=== PATIENT | male | born 1955 | race Caucasian/White ===

== ENCOUNTER 2019-11-02 22:31 | Emergency (ER) | payer MEDICARE ==
[~2019-11-02] VITALS: Ht 177.8 cm; Wt 75.0 kg
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
--- NOTE | 2019-11-02 22:52 | NUR ---
PT DENIES SI/HI AT THIS TIME.
[2019-11-02 23:24] LABS: BASOPHILS # (AUTO) 0.03 x10^3/uL (0-0.1); BASOPHILS % (AUTO) 1 % (0-1); EOSINOPHILS # (AUTO) 0.01 x10^3/uL (0-0.4); EOSINOPHILS % (AUTO) 0 % (1-7); LYMPHOCYTES % (AUTO) 23 % (22-44); MD NO; MEAN CORPUSCULAR HEMOGLOBIN 29.1 pg (27.5-34.5); MEAN CORPUSCULAR HGB CONC 32.2 g/dL (33.2-36.2); MEAN CORPUSCULAR VOLUME 90.3 fL (81-97); MEAN PLATELET VOLUME 7.8 fL (7.4-10.4); MONOCYTES % (AUTO) 9 % (2-9); NEUTROPHILS # (AUTO) 3.83 x10^3/uL (1.8-6.8); NEUTROPHILS % (AUTO) 68 % (42-75); PLATELET COUNT 268 x10^3/uL (130-400); RED BLOOD COUNT 4.16 x10^6/uL (4.38-5.82); RED CELL DISTRIBUTION WIDTH 14.4 % (9.4-14.8)
[2019-11-02 23:34] LABS: ALANINE AMINOTRANSFERASE 51 U/L (12-78); ALBUMIN 3.4 g/dL (3.4-5.0); ANION GAP 8 mmol/L (5-15); CALCIUM 8.6 mg/dL (8.5-10.1); CHLORIDE 113 mmol/L (98-107); CREATININE 0.84 mg/dL (0.7-1.3)
--- NOTE | 2019-11-02 23:42 | NUR ---
Alexys fernández in [facility] - 11/02/19 at 2343 by FRANCES Information faxed to [facility], [facility], [facility], [facility], [facility].
[2019-11-02 23:44] LABS: ALKALINE PHOSPHATASE 61 U/L (45-117); BILIRUBIN,TOTAL 0.3 mg/dL (0.2-1.0); TOTAL PROTEIN 6.8 g/dL (6.4-8.2)
--- NOTE | 2019-11-02 23:46 | NUR ---
PT EDUCATED ON THE NEED FOR A URINE SAMPLE. PT ADAMANT THAT HE CANNOT PEE AT THIS TIME. PT ENCOURAGED TO JUST TRY. PT CONTINUALLY REFUSING, STATING "I TOLD YOU I CAN'T PEE!". PT THEN THREW THE URINAL ACROSS THE ROOM. WILL CONTINUE TO REMIND PT TO OBTAIN A URINE SAMPLE
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
--- NOTE | 2019-11-03 00:36 | NUR ---
PT HAS BEEN REMINDED 2 MORE TIMES FOR THE NEED FOR A URINE SAMPLE. PT STILL ADAMANTLY REFUSING AND YELLING AT THIS RN ANY TIME HE IS ASKED. PT OFFERED WATER AND REFUSES, STATING "YOU AIN'T GETTING SHIT FROM ME. I DON'T NEED TO BE HERE. I NEED A DENTIST, NOT YOU FUCKING PEOPLE". DR. LORENZ AWARE AND STATES THE UA IS NOT NECESSARY AT THIS TIME.
--- NOTE | 2019-11-03 02:11 | NUR ---
PT SLEEPING. RESPIRATIONS EVEN AND UNLABORED. SITTER OUTSIDE DOOR MONITORING PT. ROOM REMAINS SECURE.
--- NOTE | 2019-11-03 03:24 | NUR ---
PT CONTINUES TO SLEEP. NO DISTRESS NOTED. ROOM REMAINS SECURE. SITTER OUTSIDE DOOR MONITORING PT. WILL CONTINUE TO MONITOR.
--- NOTE | 2019-11-03 05:43 | NUR ---
PT MOVED TO ROOM 2. REPORT TO BARTOLOME WRIGHT. BELONGINGS MOVED IN LOCKER.
--- NOTE | 2019-11-03 05:51 | NUR ---
PT RESTING IN BED, PT ROOM IS SI SECURE WITH SITTER AT PT DOOR. RN WILL CONTINUE TO MONITOR PT. PT DENIED ANY WANTS OR NEEDS AT THIS TIME. PT MEDICATED PER EMAR.
[2019-11-03 06:33] LABS: AMPHETAMINE SCREEN, URINE Positive (Negative); BARBITURATE SCREEN, URINE Negative (Negative); BENZODIAZEPINE SCREEN, URINE Negative (Negative); CANNABINOID SCREEN, URINE Positive (Negative); OPIATE SCREEN, URINE Negative (Negative)
[2019-11-03 06:35] LABS: COCAINE SCREEN, URINE Negative (Negative); METHADONE SCREEN, URINE Negative (Negative)
--- NOTE | 2019-11-03 07:12 | NUR ---
REPORT RECEIVED FROM ADRIANA MANCUSO.
--- NOTE | 2019-11-03 07:49 | NUR ---
TASK RN NOTE: BREAKFAST DELIVERED AND PT PROVIDED PO FLUIDS PER PREFERENCE. NAD NOTED AT THIS TIME. SITTER OUTSIDE OF ROOM FOR DIRECT OBSERVATION AND Q15 MIN SAFETY CHECKS.
--- NOTE | 2019-11-03 08:06 | NUR ---
HOAPITAL BED ORDERED AT THIS TIME.
--- NOTE | 2019-11-03 09:13 | NUR ---
hospital bed in room. pt's aox4. resps even and unlabored. sitter monitoring from hallway for safety. room remains secure.
[2019-11-03 09:14] VITALS: BP 129/67
--- NOTE | 2019-11-03 10:20 | NUR ---
pt resting in hospital bed. resps even and unlabored. sitter monitoring from hallway for safety. room remains secure.
--- NOTE | 2019-11-03 11:11 | NUR ---
diet tray ordered at this time.
--- NOTE | 2019-11-03 11:46 | NUR ---
TASK RN NOTE: TAN RAY AT BEDSIDE FOR ASSESSMENT. NAD NOTED IN PT AT THIS TIME. SITTER OUTSIDE OF ROOM FOR DIRECT OBSERVATION AND Q15 MIN SAFETY CHECKS.
--- NOTE | 2019-11-03 11:55 | NUR ---
THROUGHPUT RN::U STATED THEY RECEVIED REFERRAL, HOWEVER ARE AT [facility]ASITY AND WILL NOT BE ABLE TO ACCEPT PT TODAY. PT PACKET SENT TO [facility], [facility], [facility] AND [facility].
--- NOTE | 2019-11-03 12:29 | NUR ---
diet tray provided at this time.
--- NOTE | 2019-11-03 12:44 | NUR ---
eladio mackenzie/[facility] called with dr vaughan accepting. request transfer for 1600 today
--- NOTE | 2019-11-03 13:26 | NUR ---
pt sleeping in hospital bed. resps even and unlabored. sitter monitoring from hallway for safety. room remains secure.
--- NOTE | 2019-11-03 14:35 | NUR ---
pt sleeping in hospital bed. resps even and unlabored. sitter monitoring from hallway for safety. room remains secure.
--- NOTE | 2019-11-03 15:29 | NUR ---
report given to eladio perry at [facility].
--- NOTE | 2019-11-03 16:38 | NUR ---
coffee provided per request. pt's aox4. resps even and unlabored. sitter monitoring from hallway for safety. room remains secure.
--- NOTE | 2019-11-03 17:56 | NUR ---
pt belonging(one back pack) given to ems. pt stated"missing some staff. where's my boots?" per book reviewer rn, all clothing soiled in feces and thrown away. pt verbally understanding and amb with steady gait to exit with ems.
== END 2019-11-03 18:00 ==
LOC: ED 11-03 08:17
DX: F15.150 Other stimulant abuse with stimulant-induced psychotic disorder with delusions (principal); F12.10 Cannabis abuse, uncomplicated; Z72.9 Problem related to lifestyle, unspecified; R00.0 Tachycardia, unspecified; F17.200 Nicotine dependence, unspecified, uncomplicated
CPT/HCPCS: 36415; 80053; 80307; 84443; 85025; 99285